=== PATIENT | female | born 1995 | race Caucasian/White ===

== ENCOUNTER 2017-07-26 05:37 | Emergency (ER) | payer OTHER ==
[2017-07-26 06:04] LABS: Bilirubin Negative (Negative); Blood, Urine Negative (Negative); Clarity CLEAR (Clear); Glucose, Urine (Dipstick) Negative (Negative); Leukocyte Negative (Negative); Nitrite Negative (Negative); Protein, Urine (Dipstick) Negative (Neg-Trace); Specific Gravity, Urine 1.018 (1.002-1.036); Urobilinogen 0.2 mg/dL (0.2-1.0); pH, Urine 6.5 (5.0-9.0)
[2017-07-26 06:05] LABS: Pregnancy Test - Urine (BHCG) Negative (Negative); Pregu Control Background? CLEAR/WHITE (CLR/WHITE); Pregu Control Bar Appear? YES (CONTROL BAR); Specific Gravity 1.018 (1.002-1.036)
[2017-07-26 06:38] LABS: #Basophils 0.1 thou/uL (0.0-0.2); #Eosinphils 0.1 thou/uL (0.0-0.7); #Lymphocytes 1.8 thou/uL (1.20-3.40); #Monocytes 0.5 thou/uL (0.11-0.59); #Neutrophils 3.8 thou/uL (1.40-6.50); %Basophils 1.2 % (0.0-1.0); %Eosinophils 1.3 % (0.0-10.0); %Lymphocytes 28.3 % (21.0-51.0); %Monocytes 8.1 % (0.0-10.0); Hemoglobin 14.7 g/dL (12.0-16.0); Mean Corpuscular HGB CONC 34.4 g/dL (32.0-36.0); Mean Corpuscular Hemoglobin 31.6 pg (27.0-31.0); Mean Corpuscular Volume 91.7 fl (81.0-99.0); Mean Platelet Volume 6.7 fL (7.4-10.4); Platelet Count 225 thou/uL (130-400); RBC Distribution Width 11.8 % (11.5-14.5); Red Blood Cell (RBC) Count 4.67 mill/uL (4.20-5.40); White Blood Cell (WBC) Count 6.3 thou/uL (4.8-10.8)
[2017-07-26 07:07] LABS: ALT (SGPT) 13 U/L (8-55); AST (SGOT) 21 U/L (5-34); Albumin 3.7 g/dL (3.5-5.0); Alkaline Phosphatase 90 U/L (40-150); BUN (Urea Nitrogen) 14 mg/dL (7.0-18.7); Bilirubin, Total 0.3 mg/dL (0.2-1.2); Calc. Creatinine Clearance 0 mL/min (70-130); Calcium 8.9 mg/dL (7.8-10.44); Carbon Dioxide 23 mmol/L (22-29); Chloride 106 mmol/L (98-107); Estimated GFR-MDRD 90; Globulin 3.2 g/dL (2.4-3.5); Glucose 89 mg/dL (70-105); Potassium 3.8 mmol/L (3.5-5.1); Protein, Total 6.9 g/dL (6.0-8.3); Sodium 138 mmol/L (136-145)
[2017-07-26 07:09] LABS: Anion Gap 13 mmol/L (10-20)
[2017-07-26] MEDS ORDERED: Ondansetron ODT 4 MG TAB ONE (07:45)
--- NOTE | 2017-07-26 08:11 | ULT ---
TRANSABDOMINAL PELVIC ULTRASOUND: Date: 07/26/17 PROVIDED CLINICAL HISTORY: Flank pain. FINDINGS: Correlation is made with CT examination of the abdomen and pelvis performed concurrently. Uterus measures about 6.6 x 2.6 x 4.3 cm and demonstrates a normal transvaginal sonographic appearanc e. Endometrial thickness is about 8.0 mm. The right and left ovaries are not distinctly identified. There is a large complex cystic mass present within the pelvis in the midline. This measures approxim ately 13.6 x 7.2 x 8.2 cm. There are numerous thickened internal septations. There is a trace amount of possibly physiologic free pelvic fluid. Color Doppler and spectral analysis of the solid components of the cystic mass in the pelvis demonstr ate flow. IMPRESSION: Large complex cystic mass in the pelvis, suspicious for cystic ovarian neoplasm. LEARNING PROGRAM MANAGER consultation is recommended. POS: OFF
--- NOTE | 2017-07-26 08:40 | CT ---
PRELIMINARY REPORT/[facility]/EMERGENCY AFTER HOURS PROCEDURE: EXAM: CT Abdomen and Pelvis With Intravenous Contrast EXAM DATE/TIME: 07/26/2017 6:31 AM CLINICAL HISTORY: 21 years old, female; Pain; Abdominal pain; Localized; Right lower quadrant (rlq); Patient HX: F23 pr esents to ed for right flank pain. Pain onset saturday and has been worsening with pain radiating to the rlq. Lmp 2 weeks ago. No HX of similar pain. Last meal was around 1900 previous evening. Neg pre g test TECHNIQUE: Axial computed tomography images of the abdomen and pelvis with intravenous contrast. Coronal reforma tted images were created and reviewed. CONTRAST: 95 ml of ISOVUE 370 administered intravenously. COMPARISON: No relevant prior studies available. FINDINGS: Lower thorax: No acute findings. ABDOMEN: Liver: Normal. No mass. Gallbladder and bile ducts: Normal. No calcified stones. No ductal dilation. Pancreas: Normal. No ductal dilation. Spleen: Normal. No splenomegaly. Adrenals: Normal. No mass. Kidneys and ureters: Normal. No hydronephrosis. Stomach and bowel: Moderate feces is present throughout the colon. Appendix: The appendix is seen and is normal in appearance. PELVIS: Bladder: Unremarkable as visualized. Reproductive: Large cystic mass arising from the right pelvis, likely from the right ovary measuring up to 13.5 x 12 x 8 cm. Findings are most concerning for ovarian cystic neoplasm. ABDOMEN and PELVIS: Intraperitoneal space: There is a small amount of free fluid present in the pelvis, nonspecific. Bones/joints: No acute fracture. No dislocation. Soft tissues: Unremarkable. Vasculature: Normal. No abdominal aortic aneurysm. Lymph nodes: Normal. No enlarged lymph nodes. IMPRESSION: 1. There is a small amount of free fluid present in the pelvis, nonspecific. Large cystic mass arisin g from the right pelvis, likely from the right ovary measuring up to 13.5 x 12 x 8 cm. Findings are m ost concerning for ovarian cystic neoplasm. 2. Remainder of findings as described above. These findings were discussed with Dr. GLYNN at 8:30 AM EST. Thank you for allowing us to participate in the care of your patient. Dictated and Authenticated by: Dora Howard MD 07/26/2017 7:30 AM Central Time ([place] & [place]) FINAL REPORT CT ABDOMEN AND PELVIS WITH IV CONTRAST: Date: 06/15/18 FINDINGS/IMPRESSION: I agree with the preliminary report given by Dom. POS: JAZMÍN
--- NOTE | 2017-07-26 10:02 | CON ---
DATE OF CONSULTATION: 07/26/2017 ER PHYSICIAN: Dominguez Kurtz D.O. CONSULTING PHYSICIAN: Anjel Davenport M.D. REASON FOR CONSULTATION: Adnexal mass. HISTORY OF PRESENT ILLNESS: Ms. Ann is a 21-year-old G0, last menstrual period 07/11/2017 who presented to the ER this morning complaining of increasing abdominal pain since Saturday. She states that she has been very active through the week as she is currently working with [employer] here locally and has traveled from her home in [place], [place]. She denies nausea, vomiting, fever or chills. She did require morphine for pain here in the ER, but is feeling better now. PAST MEDICAL HISTORY: None. CURRENT MEDICATIONS: Antibiotics for acne. PAST SURGICAL HISTORY: None. ALLERGIES: No known allergies. SOCIAL HISTORY: Denies tobacco, alcohol, or drug use. FAMILY HISTORY: Unremarkable for pelvic malignancy. PHYSICAL EXAMINATION: VITAL SIGNS: On admission, blood pressure 125/87, pulse 89, respirations 16, temperature 98.1. ABDOMEN: Soft. There is tenderness to deep palpation, but there is no guarding or rebound. PELVIC: Pelvic examination is deferred. IMAGING: CT scan shows a uterus with an axial length of 6 cm. There is a large complex cystic mass in the midline that measures 13.6 x 7.2 x 8.2. No mention is made of omental caking or fluid within the pelvis. LABORATORY DATA: I did review her laboratory data with Dr. Kurtz and it is normal. ASSESSMENT AND PLAN: Large adnexal mass. PLAN: At this time, I have given the patient the option of admitting her for workup and evaluation here versus giving her pain medicine and let letting her go back to her physician in [place]. She strongly wishes to return to [place]. As there is no guarding or rebound at this time, Dr. Kurtz will give her some pain medicine and allow her to go back home to [place], [place] for her evaluation there. She was given complete precautions regarding increasing pain or worsening of her condition and should return to the ER should she have these things. DEWEY
[2017-07-26] MEDS ORDERED: ISOVUE-370 76%-LOCM 1 ML ONE (16:36)
== END 2017-07-26 10:53 | disposition home or self-care (01) ==
LOC: ERS 05:37
DX: N83.8 Other noninflammatory disorders of ovary, fallopian tube and broad ligament (principal)
CPT/HCPCS: 74177; 76856; 80053; 81003; 81025; 85025; 93976; 96361; 96374; J2270; Q0162